=== PATIENT | female | born 1965 ===

== ENCOUNTER 2022-04-02 08:02 | Day surgery (SDC) | payer MEDICARE, MEDICAID, SELFPAY ==
[2022-03-29 13:58] VITALS: BMI 25.4
[2022-04-02 08:53] VITALS: BP 125/90; PULSE 64; RESP 18; TEMP 37.1; O2SAT 98
[2022-04-02] MEDS: sodium chloride 0.9% 1,000 ML 30 ML IV (08:59)
--- NOTE | 2022-04-02 10:00 | ANES.PREANE2 ---
Pre-Anesthetic Assessment Height/Weight: Height 1.73 m Weight 75.75 kg Temp Pulse Resp BP Pulse Ox 98.7 F 64 18 125/90 98 04/02/22 08:53 04/02/22 08:53 04/02/22 08:53 04/02/22 08:53 04/02/22 08:53 Preop Diagnosis: Pain Operation Date: 04/02/22 10:00 Proposed Procedures p EGD and Colonoscopy [id number],R19.7(Not Applicable) - Alexi Goodrich MD s Colonoscopy(Not Applicable) - Alexi Goodrich MD Familial anesthetic complications: None Was Beta Ania taken within 24 hours: Yes Was Clonidine taken within 24 hours: N/A Last intake: Intake Last Liquid Date 04/01/22 Last Liquid Time 19:00 Last Solid Date 03/31/22 Last Solid Time 18:00 Social No alcohol and No tobacco Exam alert, oriented x 3, clear to auscultation bilaterally and regular rate & rhythm Airway Submandibular: within normal limits Cervical ROM: within normal limits Mallampati: Class I Dentition: false History/ROS No significant complaints Pulmonary None reported CV/HEM None reported Beta ania for anxiety None reported Hepatic None reported GI Gastroesophageal Reflux Disease (w/ reflux poorly controlled. ) Metabolic None reported Musc/skel None reported Neuropsych Anxiety Denies hx of stroke or siezure Hx of Tardive dyskinesia Anesthetic Plan ASA status: 2 Anesthesia: Anesthesia Evaluation and General Other: I discussed with the patient risks, goals, and benefits of MAC and general anesthesia. We discussed spectrum of MAC anesthesia including conversion to general as well as possibility of recall of intraoperative stimuli including discomfort/pain. Patient agrees to proceed with MAC. Risk of > 500 ml blood loss (7ml/kg in children): No Medications/Allergies Home Medications Medication Instructions Recorded Confirmed Last Taken Type deutetrabenazine 12 mg tablet 12 mg PO BID 03/29/22 03/29/22 03/31/22 History (Austedo) deutetrabenazine 6 mg tablet 6 mg PO DAILY 03/29/22 03/29/22 03/31/22 History (Austedo) fexofenadine 180 mg tablet 180 mg PO DAILY 03/29/22 03/29/22 03/31/22 History omeprazole 20 mg capsule,delayed 20 mg PO DAILY 03/29/22 03/29/2222 History release oxybutynin chloride 5 mg tablet 5 mg PO TID 03/29/22 03/29/22 03/31/22 History paliperidone palmitate 156 mg/mL 156 mg IM DIRECTED 03/29/22 04/02/22 03/19/22 History intramuscular syringe (Gold Gomez) propranolol 10 mg tablet 10 mg PO TID 03/29/22 04/02/22 04/02/22 History quetiapine 100 mg tablet 100 mg PO DIRECTED 03/29/22 03/29/22 03/31/22 History trazodone 100 mg tablet 200 mg PO DAILY 03/29/22 03/29/22 03/31/22 History Allergies Allergy/AdvReac Type Severity Reaction Status Date / Time No Known Allergies Allergy Unverified 03/13/22 16:20 Current Medications Generic Name Dose Route Start Last Admin Trade Name Freq PRN Reason Stop Dose Admin Sodium Chloride 1,000 mls @ 30 mls/hr 04/02/22 08:30 04/02/22 08:59 Sodium Chloride 0.9% IV 04/03/22 08:29 30 mls/hr .Q24H CHELLY Administration Data Anesthesia Cardiac Studies: No Data to Display
--- NOTE | 2022-04-02 11:05 | P.HP_ITS ---
Same Day Surgery H&P Indication for Procedure/HPI DATE OF PROCEDURE: April 02, 2022 CHIEF COMPLAINT/INDICATIONFOR SURGICAL PROCEDURE: Diarrhea PREOP DIAGNOSIS: Pain PLANNED PROCEDURE: Operation Date: 04/02/22 10:00 Proposed Procedures p EGD and Colonoscopy [id number],R19.7(Not Applicable) - Alexi Goodrich MD s Colonoscopy(Not Applicable) - Alexi Goodrich MD Medications/Allergies* Home Medications Medication Instructions Recorded Confirmed Type deutetrabenazine 12 mg tablet 12 mg PO BID 03/29/22 03/29/22 History (Austedo) deutetrabenazine 6 mg tablet 6 mg PO DAILY 03/29/22 03/29/22 History (Austedo) fexofenadine 180 mg tablet 180 mg PO DAILY 03/29/22 03/29/22 History omeprazole 20 mg capsule,delayed 20 mg PO DAILY 03/29/22 03/29/22 History release oxybutynin chloride 5 mg tablet 5 mg PO TID 03/29/22 03/29/22 History paliperidone palmitate 156 mg/mL 156 mg IM DIRECTED 03/29/22 04/02/22 History intramuscular syringe (Invega Sustenna) propranolol 10 mg tablet 10 mg PO TID 03/29/22 04/02/22 History quetiapine 100 mg tablet 100 mg PO DIRECTED 03/29/22 03/29/22 History trazodone 100 mg tablet 200 mg PO DAILY 03/29/22 03/29/22 History Allergies/Adverse Reactions Allergy/AdvReac Type Severity Reaction Status Date / Time No Known Allergies Allergy Unverified 03/13/22 16:20 Current Medications: Generic Name Dose Route Start Last Admin Trade Name Freq PRN Reason Stop Dose Admin Sodium Chloride 1,000 mls @ 30 mls/hr 04/02/22 08:30 04/02/22 08:59 Sodium Chloride 0.9% IV 04/03/22 08:29 30 mls/hr .Q24H CHELLY Administration Pertinent Exam Findings alert, oriented x 3, clear to auscultation bilaterally, regular rate & rhythm, operative site marked and procedure specific exam findings Recommendations Surgery/Procedure today Coding Level of Care Code Acute Commissioned [employer] for [employer] Strong
--- NOTE | 2022-04-02 11:36 | ANE.PACU2 ---
Documented by User: Jh Storey CRNA 04/02/22 11:36 Inpatient post-anesthesia follow up: Airway intact: Yes Vital signs: Temperature 98.7 F Pulse Rate 64 Respiratory Rate 18 Blood Pressure 125/90 Pulse Oximetry 98 Oxygen Delivery Me thod Room Air Oxygen Flow Rate Fraction of Inspir ed Oxygen Hydration adequate: Yes Nausea and vomiting: No Pain level: 1 Mental status: Baseline
[2022-04-02 11:38] VITALS: BP 109/79; PULSE 73; RESP 16; TEMP 36.1; O2SAT 96
== END 2022-04-02 12:19 | disposition home or self-care (01) ==
PROVIDERS: PCP Nurse Practitioner Family; Visit Provider Internal Medicine
PROC: 0DJ08ZZ Inspection of Upper Intestinal Tract, Via Natural or Artificial Opening Endoscopic (ICD-10-PCS; CPT 43235; principal; 2022-04-02 10:00)
PROC: 0DJD8ZZ Inspection of Lower Intestinal Tract, Via Natural or Artificial Opening Endoscopic (ICD-10-PCS; CPT 45378; 2022-04-02 10:00)
DX: R19.7 Diarrhea, unspecified (principal); R10.13 Epigastric pain; F41.9 Anxiety disorder, unspecified; K21.9 Gastro-esophageal reflux disease without esophagitis
CPT/HCPCS: 43239; 45378; 82274; 83630; 87493; 87506; 88305; J2704; J7030